=== PATIENT | male | born 1995 | race Caucasian/White ===

== ENCOUNTER 2017-05-30 08:00 | Outpatient (CLI) | payer OTHER | END 2017-05-30 08:01 | disposition home or self-care (01) | LOC: LAB.R 08:00 | PROVIDERS: ATTEND Pediatrics | DX: Z11.3 Encounter for screening for infections with a predominantly sexual mode of transmission (principal) | CPT/HCPCS: 87491; 87591 ==

== ENCOUNTER 2019-12-20 15:38 | Outpatient (CLI) | payer OTHER ==
--- NOTE | 2019-12-21 08:09 | XRAY Report ---
PROCEDURE: Lumbar Spine 2 View INDICATIONS: LOW BACK PAIN TECHNIQUE: A views of the lumbar spine were acquired. COMPARISON: None. FINDINGS: Bones: 5 [id number] vertebrae are present. There is a mild to moderate degree of degenerative disc height reduction and facet osteoarthritis at L5-S1 but more superiorly the study appears normal for age. There is normal bony alignment. No vertebral body compression fractures. No suspicious bon y lesions. Soft tissues: Overlying bowel gas pattern is normal. No suspicious soft tissue calcifications. IMPRESSION: Lumbosacral junction L5-S1 mild to moderate degenerative disc disease and facet osteoart hritis combined, with potential for mild to moderate spinal and foraminal stenosis as a result. Reviewed by: Rustam Mcfarland MD on 12/21/2019 8:08 AM PDT Approved by: Rustam Mcfarland MD on 12/21/2019 8:08 AM PDT Station ID: [id number]
== END 2019-12-20 15:39 | disposition home or self-care (01) ==
LOC: DI 15:38
PROVIDERS: ATTEND Nurse Practitioner Family
DX: M51.17 Intervertebral disc disorders with radiculopathy, lumbosacral region (principal); M47.27 Other spondylosis with radiculopathy, lumbosacral region
CPT/HCPCS: 72100